=== PATIENT | female | born 1935 | race Two or more races ===

== ENCOUNTER 2017-05-13 03:24 | Inpatient (IN) | payer OTHER ==
[~2017-05-13] VITALS: Ht 157.5 cm; Wt 54.9 kg
[~2017-05-13 03:24] MED LIST: WARF1TAB
[2017-05-13] MEDS ORDERED: ENOXAPARIN SOD 80 MG/0.8ML SYRINGE SC ONE (04:00)
[2017-05-13] MEDS ORDERED: ASPirin 81 mg TAB PO ONE (04:00)
[2017-05-13 06:00] LABS: Basophils # (auto) 0 uL; Basophils % (auto) 0.2 % (0.0-2.0); Eosinophils # (auto) 0 uL; Hematocrit 37.1 % (36.0-46.0); Hemoglobin 12.6 g/dL (12.2-16.2); Lymphocytes # (auto) 0.9 uL; Lymphocytes % (auto) 15.6 % (10.0-50.0); Mean Corpuscular Hemoglobin 30.4 pg (28.0-32.0); Mean Corpuscular Volume 89.4 fL (80.0-100.0); Monocytes # (auto) 0.4 uL; Monocytes % (auto) 6.7 % (0.0-12.0); Neutrophils # (auto) 4.6 uL; Neutrophils % (auto) 77.5 % (37.0-80.0); Nucleated Red Blood Cells % 0.3 %; Platelet Count (auto) 336 10^3/uL (140-450); Red Blood Cells 4.15 10^6/uL (4.0-5.20); Red Cell Distribution Width 13.4 % (11.8-14.3); White Blood Cell 5.9 10^3/uL (4.4-10.8)
[2017-05-13 06:07] LABS: Partial Thromboplastin Time 43.9 sec (22.64-33.71)
[2017-05-13 06:16] LABS: Albumin 3.5 g/dL (3.4-5.0); BUN/Creatinine Ratio 16.9; Calcium 7.9 mg/dL (8.5-10.1); Magnesium 1.9 mg/dL (1.6-2.6); Potassium 3.6 mmol/L (3.5-5.1)
[2017-05-13 06:21] LABS: Bilirubin, Total 0.4 mg/dL (0.2-1.0); Total Protein 6.9 g/dL (6.4-8.2)
[2017-05-13] MEDS ORDERED: SODIUM CHLORIDE 0.9% 1,000 ML IV ONE (08:27)
[2017-05-13 12:02] LABS: Urine Bacteria NONE SEEN /hpf (None Seen); Urine Blood TRACE /uL (Negative); Urine Mucus FEW (None Seen); Urine Specific Gravity 1.018 (1.001-1.035); Urine WBC 2 /hpf (0 - 5)
[2017-05-13] MEDS ORDERED: LORazepam 0.5 MG TAB PO PRN (14:30)
[2017-05-13] MEDS ORDERED: MORPHINE SULF INJ 2 MG/ML SYRINGE 1ML IV PRN (14:30)
[2017-05-13] MEDS ORDERED: LACTULOSE 20Gm/30ML SOLN PO PRN (14:30)
[2017-05-13] MEDS ORDERED: NITROGLYCERIN 0.4 MG SL TAB SL PRN (14:30)
[2017-05-13] MEDS ORDERED: DEXTROSE (50%) 50ML SYRG IV PRN (14:30)
[2017-05-13] MEDS ORDERED: HYDROcodone-ACET 5/325MG TAB PO PRN (14:30)
[2017-05-13] MEDS ORDERED: ALBUTEROL SULF 2.5 MG/0.5ML(0.5%) NEB SOLN NEB PRN (14:30)
[2017-05-13] MEDS ORDERED: ACETAMINOPHEN 500 MG TAB PO PRN (14:30)
[2017-05-13] MEDS ORDERED: PROMETHAZINE HCL 25 MG/ML 1ML IV PRN (14:30)
[2017-05-13] MEDS ORDERED: TEMAZEPAM 15 MG CAP PO PRN (14:30)
[2017-05-13] MEDS ORDERED: MORPHINE SULFATE 4 MG/ML SYR/VIAL IV PRN (14:30)
[2017-05-13] MEDS ORDERED: LEVOFLOXACIN 500MG 100 ML IV ONE (14:30)
[2017-05-13] MEDS: OSELTAMIVIR 75 MG CAP PO ONE ×2 (14:40→15:28)
[2017-05-13] MEDS: METOPROLOL TARTRATE 25 MG TAB PO SCH ×2 (15:20→21:55)
[2017-05-13] MEDS: SODIUM CHLORIDE 0.9% 1,000 ML IV SCH (15:21)
[2017-05-13] MEDS: NITROGLYCERIN 0.2MG/HR TOPICAL PATCH TD SCH (15:21)
[2017-05-13] MEDS ORDERED: WARFARIN SODIUM 1 MG TAB PO ONE (17:00)
[2017-05-13] MEDS: ACCU-CHEK COMFORT CURVE STRIP VI SCH ×2 (18:22→21:55)
[2017-05-13] MEDS: InsuLIN REG 1unit/0.01ml Soln (100units/ml) SC SCH ×2 (18:29→21:55)
[2017-05-13 19:30] VITALS: BP 158/83
[2017-05-13 21:28] LABS: CRP High Sensitivity 9.5 mg/dL (< 0.3)
[2017-05-13 22:00] VITALS: BP 144/82
[2017-05-13] MEDS ORDERED: ATORVASTATIN 20 MG TAB PO SCH (22:00)
[2017-05-13] MEDS: OSELTAMIVIR 75 MG CAP PO SCH (22:21)
[2017-05-13 23:30] VITALS: BP 144/82
[2017-05-14] MEDS: SODIUM CHLORIDE 0.9% 1,000 ML IV SCH (02:54)
[2017-05-14 05:00] VITALS: BP 166/87
[2017-05-14] MEDS: InsuLIN REG 1unit/0.01ml Soln (100units/ml) SC SCH ×2 (06:35→11:16)
[2017-05-14] MEDS: ACCU-CHEK COMFORT CURVE STRIP VI SCH ×2 (06:35→11:15)
[2017-05-14 07:04] LABS: Basophils # (auto) 0 uL; Basophils % (auto) 0.8 % (0.0-2.0); Eosinophils # (auto) 0 uL; Eosinophils % (auto) 0.1 % (0.0-7.0); Hematocrit 36.4 % (36.0-46.0); Hemoglobin 12.2 g/dL (12.2-16.2); Lymphocytes # (auto) 1.4 uL; Mean Corpuscular Hgb Conc. 33.5 g/dL (32.0-36.0); Mean Corpuscular Volume 89.5 fL (80.0-100.0); Monocytes # (auto) 0.5 uL; Monocytes % (auto) 17.9 % (0.0-12.0); Neutrophils # (auto) 1.1 uL; Neutrophils % (auto) 36.2 % (37.0-80.0); Nucleated Red Blood Cells % 0.2 %; Platelet Count (auto) 284 10^3/uL (140-450); Red Blood Cells 4.07 10^6/uL (4.0-5.20); Red Cell Distribution Width 13.3 % (11.8-14.3); White Blood Cell 3.1 10^3/uL (4.4-10.8)
[2017-05-14 07:21] LABS: INR 1.47 (0.9-1.15); Partial Thromboplastin Time 35.8 sec (22.64-33.71); Prothrombin Time 16.1 sec (9.37-12.3)
[2017-05-14 09:00] VITALS: BP 177/96
[2017-05-14] MEDS ORDERED: hydrALAZINE HCL 25 MG TAB PO PRN (09:45)
[2017-05-14] MEDS ORDERED: LEVOFLOXACIN 500MG 100 ML IV SCH (10:00)
[2017-05-14] MEDS ORDERED: PANTOPRAZOLE 40 MG TAB PO SCH (10:00)
[2017-05-14] MEDS ORDERED: ASPirin 81 mg TAB PO SCH (10:00)
[2017-05-14] MEDS: OSELTAMIVIR 75 MG CAP PO SCH (10:00)
[2017-05-14 10:12] LABS: Albumin 3.1 g/dL (3.4-5.0); BUN/Creatinine Ratio 17.2; Bilirubin, Total 0.3 mg/dL (0.2-1.0); Calcium 7.7 mg/dL (8.5-10.1); Potassium 3.3 mmol/L (3.5-5.1); Total Protein 6.5 g/dL (6.4-8.2)
[2017-05-14] MEDS: METOPROLOL TARTRATE 25 MG TAB PO SCH (11:02)
[2017-05-14] MEDS: NITROGLYCERIN 0.2MG/HR TOPICAL PATCH TD SCH (11:03)
[2017-05-14 13:00] VITALS: BP 195/81
[2017-05-14 15:23] VITALS: BP 177/96
[2017-05-14 15:42] VITALS: BP 177/96
[2017-05-14] MEDS ORDERED: WARFARIN SODIUM 1 MG TAB PO ONE (17:00)
== END 2017-05-14 16:00 | disposition home or self-care (01) | DRG 640 ==
LOC: ER 03:24 → EDBD 03:24 → TELE 03:25 → TELE-WESTW 19:32
PROVIDERS: ADMIT Internal Medicine; ATTEND Internal Medicine
DX: E87.1 Hypo-osmolality and hyponatremia (principal); G93.41 Metabolic encephalopathy; E11.65 Type 2 diabetes mellitus with hyperglycemia; I48.91 Unspecified atrial fibrillation; J11.1 Influenza due to unidentified influenza virus with other respiratory manifestations; F03.90 Unspecified dementia, unspecified severity, without behavioral disturbance, psychotic disturbance, mood disturbance, and anxiety; E78.5 Hyperlipidemia, unspecified; I11.9 Hypertensive heart disease without heart failure; D32.9 Benign neoplasm of meninges, unspecified; Z90.49 Acquired absence of other specified parts of digestive tract; Z88.0 Allergy status to penicillin; Z86.73 Personal history of transient ischemic attack (TIA), and cerebral infarction without residual deficits; Z87.891 Personal history of nicotine dependence
CPT/HCPCS: 36415; 51702; 70450; 71010; 74176; 80053; 80061; 81001; 82150; 82550; 82962; 83036; 83605; 83690; 83735; 83880; 84443; 84484; 85025; 85610; 85652; 85730; 86141; 87086; 87400; 93005; 93306; 94761; 96361; 96365; 96372; J1815; J1956

== ENCOUNTER 2018-04-24 17:04 | Emergency (ER) | payer OTHER ==
[~2018-04-24] VITALS: Ht 157.5 cm; Wt 59.0 kg
[2018-04-24 17:58] LABS: Basophils # (auto) 0.1 uL; Basophils % (auto) 0.6 % (0.0-2.0); Eosinophils # (auto) 0.1 uL; Eosinophils % (auto) 0.7 % (0.0-7.0); Hematocrit 41.1 % (36.0-46.0); Lymphocytes # (auto) 2.7 uL; Lymphocytes % (auto) 27.6 % (10.0-50.0); Mean Corpuscular Hemoglobin 30.3 pg (28.0-32.0); Mean Corpuscular Volume 89.1 fL (80.0-100.0); Monocytes # (auto) 0.7 uL; Monocytes % (auto) 6.8 % (0.0-12.0); Neutrophils # (auto) 6.4 uL; Neutrophils % (auto) 64.3 % (37.0-80.0); Platelet Count (auto) 365 10^3/uL (140-450); Red Blood Cells 4.62 10^6/uL (4.0-5.20); Red Cell Distribution Width 13.4 % (11.8-14.3); White Blood Cell 9.9 10^3/uL (4.4-10.8)
[2018-04-24 18:22] LABS: Albumin 3.8 g/dL (3.4-5.0); Anion Gap 9 (5-15); Blood Urea Nitrogen 11 mg/dL (7-18); Calcium 8.5 mg/dL (8.5-10.1); Carbon Dioxide 24 mmol/L (21-32); Chloride 92 mmol/L (98-107); Glucose 219 mg/dL (74-106); Magnesium 1.8 mg/dL (1.6-2.6); Potassium 3.2 mmol/L (3.5-5.1); Sodium 125 mmol/L (136-145)
[2018-04-24 18:28] LABS: Alanine Aminotransferase 28 U/L (13-56); Alkaline Phosphatase 79 U/L (45-117); Aspartate Aminotransferase 17 U/L (15-37); Bilirubin, Total 0.5 mg/dL (0.2-1.0); GFR African American 120 mL/min; GFR Non-African American 100 mL/min; Total Protein 7.6 g/dL (6.4-8.2)
[2018-04-24] MEDS ORDERED: NICARDIPINE 25MG/250ML BAG KIT 250 ML IV SCH (20:00)
[2018-04-24] MEDS ORDERED: NICARDIPINE 25MG/250ML BAG KIT 250 ML IV ONE (20:04)
[2018-04-24 20:24] VITALS: BP 185/92
== END 2018-04-24 21:23 | disposition short-term general hospital (02) ==
LOC: ER 17:04 → EDBD 17:04 → EDUNIT# 17:04 → ER 21:23
DX: I61.4 Nontraumatic intracerebral hemorrhage in cerebellum (principal); R11.2 Nausea with vomiting, unspecified; I10 Essential (primary) hypertension; I48.91 Unspecified atrial fibrillation; E11.9 Type 2 diabetes mellitus without complications; Z90.710 Acquired absence of both cervix and uterus; Z88.0 Allergy status to penicillin; Z90.89 Acquired absence of other organs
CPT/HCPCS: 36415; 70450; 71045; 74176; 80053; 80162; 83735; 84484; 85025; 93005; 94761; 96365; 99285; J7030